=== PATIENT | female | born 1955 | race Caucasian/White ===

== ENCOUNTER 2024-09-17 07:19 | Observation (INO) ==
--- NOTE | 2024-08-15 10:32 | PAT Medication Instructions ---
Medication Instructions Date of Service August 15, 2024 Home Medications acetaminophen 325 mg tablet 325 mg PO QID PRN Pain atorvastatin 20 mg tablet 20 mg PO HS coenzyme Q10 100 mg capsule (Co Q-10) 100 mg PO DAILY duloxetine 60 mg capsule,delayed release 60 mg PO QAM ibuprofen 400 mg tablet 400 mg PO Q8H PRN Pain linaclotide 72 mcg capsule (Linzess) 72 mcg PO QAM losartan 100 mg-hydrochlorothiazide 25 mg tablet 1 tab PO QAM metformin 500 mg tablet 500 mg PO HS metoprolol tartrate 25 mg tablet 25 mg PO QAM omega-3 fatty acids 1,000 mg PO DAILY semaglutide 2 mg/dose (8 mg/3 mL) subcutaneous pen injector (Ozempic) 4 mg subcut WK ASK your surgeon for instructions ibuprofen 400 mg tablet 400 mg PO Q8H PRN Pain STOP taking 2 weeks before surgery (or as soon as possible if surgery is within 2 weeks) coenzyme Q10 100 mg capsule (Co Q-10) 100 mg PO DAILY omega-3 fatty acids 1,000 mg PO DAILY STOP 7 days prior to surgery semaglutide 2 mg/dose (8 mg/3 mL) subcutaneous pen injector (Ozempic) 4 mg subcut WK DO NOT take the morning of surgery linaclotide 72 mcg capsule (Linzess) 72 mcg PO QAM losartan 100 mg-hydrochlorothiazide 25 mg tablet 1 tab PO QAM Take morning of surgery With a small sip of water, OTHERWISE NOTHING TO EAT OR DRINK AFTER MIDNIGHT: acetaminophen 325 mg tablet 325 mg PO QID PRN Pain (if needed) duloxetine 60 mg capsule,delayed release 60 mg PO QAM metoprolol tartrate 25 mg tablet 25 mg PO QAM Take evening before surgery acetaminophen 325 mg tablet 325 mg PO QID PRN Pain (if needed) atorvastatin 20 mg tablet 20 mg PO HS metformin 500 mg tablet 500 mg PO HS Other Notes If you have any questions please call us at [phone] or [phone] or [phone] or [phone]
--- NOTE | 2024-08-20 12:49 | Anesthesiology Consultation ---
Date of Service August 20, 2024 Assessment & Plan (1) Encounter for pre-operative examination: - Check BSG DOS - Infectious disease screening: Per assessment on 08/20/24- No known recent infectious disease contacts or current infectious disease symptoms. - Outpatient joint assessment: Pt currently scheduled for inpatient pathway. If surgeon requests review for outpatient joint pathway, patient is not recommended candidate for outpatient joint program from anesthesia standpoint based on available information. - GLP-1 medication instructions: Patient informed by PAT to stop 7 days prior to surgery- voiced understanding. DOS 09/17. Advised last dose to be 09/05. - Patient acceptable risk for surgery pending surgeon-ordered PCP preop evaluation (TONJA Chong, appt 09/12). Chart Review Chart Review: Patient seen in Pre Admission Testing Teaching & Discussion Pre-Anesthesia Teaching/Discussion Notes: Instructed NPO after midnight before surgery,except medications with 15 cc of water. Medication instructions provided according to the PAT guidelines. History Surgery Operation Date: 09/17/24 09:55 Proposed Procedures p Right Total Shoulder Arthroplasty, Distal Clavicle Excision, Rotator Cuff Repair with Regeneten Biological Implant, Biceps Tenodesis - Barney Edouard MD Height/Weight Height: 5 ft 2 in Weight: 98.6 kg Allergies Allergy/AdvReac Type Severity Reaction Status Date / Time Penicillins Allergy Unknown Unknown Verified 08/20/24 10:30 (childhood reaction) Medications Home Medications Medication Instructions Recorded Confirmed Last Taken acetaminophen 325 mg tablet 325 mg PO QID PRN Pain 08/13/24 08/13/24 Unknown atorvastatin 20 mg tablet 20 mg PO HS 08/13/24 08/13/24 Unknown coenzyme Q10 100 mg capsule (Co 100 mg PO DAILY 08/13/24 08/13/24 Unknown Q-10) duloxetine 60 mg capsule,delayed 60 mg PO QAM 08/13/24 08/13/24 Unknown release ibuprofen 400 mg tablet 400 mg PO Q8H PRN Pain 08/13/24 08/13/24 Unknown linaclotide 72 mcg capsule 72 mcg PO QAM 08/13/24 08/13/24 Unknown (Linzess) losartan 100 1 tab PO QAM 08/13/24 08/13/24 Unknown mg-hydrochlorothiazide 25 mg tablet metformin 500 mg tablet 500 mg PO HS 08/13/24 08/13/24 Unknown metoprolol tartrate 25 mg tablet 25 mg PO QAM 08/13/24 08/13/24 Unknown omega-3 fatty acids 1,000 mg PO DAILY 08/13/24 08/13/24 Unknown semaglutide 2 mg/dose (8 mg/3 mL) 4 mg subcut WK 08/13/24 08/13/24 Unknown subcutaneous pen injector (Ozempic) Past Medical History Medical History Anxiety and depression Chronic constipation Diabetes Dyslipidemia History of COVID-19 (2020) Resolved History of palpitations [facility] cardio evaluation 2021, unremarkable Zio patch findings, f/u PRN recommended HTN (hypertension) Exercise / Class Metabolic Activity II 4-5 Yardwork/Stairs/Walk up hill (one FS: No CP, no SOB) Past Surgical History Surgical History History of carpal tunnel release of both wrists History of esophagogastroduodenoscopy (EGD) History of total left hip arthroplasty (02/2024) [facility] Hx of appendectomy Hx of bilateral cataract extraction Hx of colonoscopy Hx of tonsillectomy Past Anesthesia History No Hx of Anesthesia Complications and No Family Hx of Anesthesia Complications History of PONV No Hx of PONV and No Hx of Motion Sickness Social History Smoking Status: Former smoker Do You Dip or Chew Tobacco: No Smoking End Date: Quit 2006 Hx Alcohol Use: No Hx Substance Use: No substance use type: does not use Review of Systems Patient denies chest pain, shortness of breath, dyspnea on exertion, fever, chills, cough, wheezing, palpitations. Physical Exam Vital Signs BP 106/64 P 63 TEMP 98.4 SP02 97%RA RESP 18 Physical Full cervical extension range of motion. Full TMJ range of motion. TMD > 3.5 finger breaths Mallampati Score II Dentition: missing sides, + crowns Lungs: clear throughout to auscultation Cardiac: regular rate and rhythm, no murmurs noted Spine: normal Carotid arteries: negative bruit Extremities: no LE edema Lab Results Anesthesia Preop Results Results Anesthesia Widget: WBC 6.50 K/ul (4.8-10.8) 08/20/24 Hgb 12.9 g/dl (12.0-16.0) 08/20/24 Hct 37.9 % (37.0-47.0) 08/20/24 Plt 267 K/uL (130-400) 08/20/24 Na 137 mmol/L (136-145) 08/20/24 K 3.9 mmol/L (3.5-5.1) 08/20/24 Cl 100 mmol/L (98-107) 08/20/24 CO2 31 mmol/L (21-32) 08/20/24 BUN 15 mg/dl (6-23) 08/20/24 Creat 0.80 mg/dl (0.6-1.2) 08/20/24 Glucose Level 110 mg/dl (70-99(Fasting)) H 08/20/24 PT 11.3 Seconds (9.0-12.0) 08/20/24 PTT 27 Seconds (21-31) 08/20/24 INR 1.0 (0.9-1.1) 08/20/24 HA1c 5.9 % (4.5-5.6) H 08/20/24 Urine Color Yellow 08/20/24 Urine Appearance Clear (Clear) 08/20/24 Urine pH 7.0 (4.5-7.5) 08/20/24 Urine Specific [place] 1.019 (1.000-1.030) 08/20/24 Urine Protein Negative (Negative) 08/20/24 Urine Glucose (UA) Negative (Negative) 08/20/24 Urine Ketones Trace (Negative) H 08/20/24 Urine Blood Negative (Negative) 08/20/24 Urine Nitrite Negative (Negative) 08/20/24 Urine Bilirubin Negative (Negative) 08/20/24 Urine Urobilinogen Negative (Negative) 08/20/24 Urine Leukocyte Esterase 1+ (Negative) H 08/20/24 Urine WBC (Auto) 0-5 /hpf (0-5) 08/20/24 Urine RBC (Auto) 0-2 /hpf (0-2) 08/20/24 Urine Hyaline Casts (Auto) 0-2 /lpf (0-2) 08/20/24 Urine Epithelial Cells (Auto) 3-5 /hpf (0-2) H 08/20/24 Urine Bacteria (Auto) None Seen (None Seen) 08/20/24 Blood Type O Positive 08/20/24 Antibody Screen NEGATIVE 08/20/24 Testing Electrocardiogram Date: 08/20/24 NSR at 67bpm. Low voltage QRS. Chest X-Ray Date: 08/20/24 FINDINGS: Heart size and pulmonary vasculature are normal. No consolidation or pleural effusion. IMPRESSION: No acute findings.
--- NOTE | 2024-09-15 16:43 | History & Physical Report ---
Date of Service September 15, 2024 Assessment & Plan (1) Osteoarthritis of right shoulder: Plan: Right shoulder pain chronic failed conservative management with advanced glenohumeral osteoarthritis and AC joint osteoarthritis which will require an anatomic total shoulder replacement with distal clavicle excision and rotator cuff repair with Regeneten bio inductive type I collagen implant. Biceps tenodesis will be performed to the pectoralis. Osteoarthritis type: primary Qualified Code(s): M19.011 - Primary osteoarthritis, right shoulder (2) Tendinopathy of right rotator cuff: (3) Biceps tendinopathy of right upper extremity: History of Present Illness Chief Complaint: Chronic right shoulder pain Primary Care Provider: Emir Lindsay MD 69-year-old female with chronic right shoulder pain with osteoarthritis and rotator cuff tendinopathy Patient denies headaches, sweats, fevers, chills, double vision, blurred vision, cough, sore throat, dysphagia, chest pain, sob, wheezing, n/v/d/c, numbness, tingling, fatigue, urinary symptoms, mood disorders. ROS positive for hypertension diabetes sometimes anemic osteoarthritis of the spine and takes Ozempic. Allergies Allergy/AdvReac Type Severity Reaction Status Date / Time Penicillins Allergy Unknown Unknown Verified 08/20/24 10:30 (childhood reaction) Home Medications Medication Instructions Recorded Confirmed Type acetaminophen 325 mg tablet 325 mg PO QID PRN Pain 08/13/24 08/13/24 History atorvastatin 20 mg tablet 20 mg PO HS 08/13/24 08/13/24 History coenzyme Q10 100 mg capsule (Co 100 mg PO DAILY 08/13/24 08/13/24 History Q-10) duloxetine 60 mg capsule,delayed 60 mg PO QAM 08/13/24 08/13/24 History release ibuprofen 400 mg tablet 400 mg PO Q8H PRN Pain 08/13/24 08/13/24 History linaclotide 72 mcg capsule 72 mcg PO QAM 08/13/24 08/13/24 History (Linzess) losartan 100 1 tab PO QAM 08/13/24 08/13/24 History mg-hydrochlorothiazide 25 mg tablet metformin 500 mg tablet 500 mg PO HS 08/13/24 08/13/24 History metoprolol tartrate 25 mg tablet 25 mg PO QAM 08/13/24 08/13/24 History omega-3 fatty acids 1,000 mg PO DAILY 08/13/24 08/13/24 History semaglutide 2 mg/dose (8 mg/3 mL) 4 mg subcut WK 08/13/24 08/13/24 History subcutaneous pen injector (Ozempic) Past Med/Surg History Problem List (Updated 09/15/24 @ 16:42 by Barney Edouard MD) Biceps tendinopathy of right upper extremity Tendinopathy of right rotator cuff Osteoarthritis of right shoulder Encounter for pre-operative examination Medical History History of palpitations [facility] cardio evaluation 2021, unremarkable Zio patch findings, f/u PRN recommended Chronic constipation History of COVID-19 (2020) Resolved Anxiety and depression Diabetes Dyslipidemia HTN (hypertension) Surgical History History of esophagogastroduodenoscopy (EGD) Hx of colonoscopy Hx of bilateral cataract extraction History of carpal tunnel release of both wrists Hx of tonsillectomy Hx of appendectomy History of total left hip arthroplasty (02/2024) [facility] Social History Smoking Status: Former smoker Tobacco Type: Cigarettes Second Hand Exposure: No; Do You Dip or Chew Tobacco: No; Hx Alcohol Use: No Hx Substance Use: No Preferred Language: Croatian Communication Ability: Effective Office Chair Assembler Required: No Beliefs That Will Affect Care: None Current Living Situation: Alone Feels Safe at Home: Yes Assistive Devices: Glasses Review of Systems All systems reviewed & are unremarkable except as noted in HPI & below Physical Exam Constitutional: WD/WN, vitals as above Respiratory: normal respiratory effort; no respiratory distress Cardiovascular: Rate/Rhythm: regular rate and regular rhythm Musculoskeletal: Right shoulder has crepitation with range of motion some abnormal rhythm with positive impingement signs and some limitation of range of motion with 160 degrees forward flexion and abduction and 80 degrees external rotation and 90 degrees internal rotation. Distal circulation sensorimotor exam is normal. Skin: no rashes, warm and dry Neurologic: normal touch/pain/proprioception Psychiatric: A+Ox3, euthymic affect Results & Data Diagnostic Findings X-rays and MRI demonstrate the MRI shows more severe osteoarthritis in the x- rays show but patient does have osteoarthritis of the glenohumeral joint which is [id number] with no articular cartilage remaining in the glenohumeral joint on the MRI. There is advanced AC joint osteoarthritis as well. There is intratendinous tendinopathy of the rotator cuff but no evidence of any high- grade tears of the rotator cuff. There is substantial biceps tendinopathy noted.
[2024-09-17] MEDS ORDERED: BUPIVACAINE 0.5 % 5 MG/1 ML PF 10ML VIAL ONE (07:41)
[2024-09-17] MEDS ORDERED: LIDOCAINE 2% 2 ML VIAL/AMP(20MG/ML) INFIL ONE (07:46)
[2024-09-17] MEDS ORDERED: ONDANSETRON INJ 2 MG/ML 2 ML VIAL ONE (07:46)
[2024-09-17] MEDS ORDERED: PROPOFOL IV EMULSION 10 MG/ML 20 ML VIAL IV ONE (07:46)
[2024-09-17] MEDS ORDERED: DEXAMETHASONE SOD INJ 4 MG/ML VIAL ONE (07:46)
[2024-09-17] MEDS ORDERED: MIDAZOLAM HCL 1 MG/ML 2ML VIAL ONE (07:47)
[2024-09-17] MEDS ORDERED: ROCURONIUM BROMIDE 10 MG/ML 5 ML VIAL IV ONE ×2 (07:47→12:15)
[2024-09-17] MEDS: LR 60ML/HR IV SCH (08:20)
[2024-09-17] MEDS: METOCLOPRAMIDE HCL 10 MG TABLET PO SCH (08:20)
[2024-09-17] MEDS: LR 15ML/HR IV SCH (08:20)
[2024-09-17] MEDS: CeleBREX 200 MG CAP PO SCH (08:21)
[2024-09-17] MEDS: ACETAMINOPHEN 500 MG TAB PO SCH ×2 (08:21→21:45)
[2024-09-17] MEDS: VANCOMYCIN HCL 1,500 MG in SODIUM CHLORIDE 0.9% 500 ML IV SCH ×2 (08:21→21:53)
[2024-09-17] MEDS ORDERED: ATROPINE SULFATE 0.1 MG/ML 10ML SYR IV PRN (09:09)
[2024-09-17] MEDS ORDERED: PROMETHAZINE HCL 6.25 MG in SODIUM CHLORIDE 0.9% 50 ML IV PRN (09:09)
[2024-09-17] MEDS ORDERED: HYDROmorphone INJ 2 MG/ML SYR/VIAL IV PRN (09:09)
--- NOTE | 2024-09-17 10:35 | History & Physical Bridge Note ---
Date of Service September 17, 2024 History & Physical Bridge Note I have examined the patient, reviewed the History & Physical and in the interval since the performance of the History & Physical I have noted the following changes of clinical significance: no changes noted
[2024-09-17] MEDS: TRANEXAMIC ACID 1,000 MG **IV Pre-op IV SCH (10:56)
[2024-09-17] MEDS ORDERED: GLYCOPYRROLATE 0.2 MG/ML VIAL ONE (11:41)
[2024-09-17] MEDS ORDERED: PHENYLEPHRINE 100MCG/ML 5ML SYR ONE (11:45)
[2024-09-17] MEDS ORDERED: PHENYLEPHRINE HCL 10 MG/ML VIAL ONE (11:46)
[2024-09-17] MEDS ORDERED: ESMOLOL HCL INJ 10 MG/ML 10ML VIAL IV ONE (12:09)
[2024-09-17] MEDS ORDERED: SUGAMMADEX SODIUM 200 MG/2 ML VIAL IV ONE (12:48)
[2024-09-17] MEDS: EpINEphrine HCL INJ 1 MG/ML 1ML SYRINGE IR ONE (12:51)
--- NOTE | 2024-09-17 14:32 | Post Operative Brief Note ---
Immediate Post Op Note Date of Surgery September 17, 2024 Pre & Post Diagnosis Operation Date: 09/17/24 09:55 Pre-Op Diagnosis: Osteoarthritis of right shoulder glenohumeral and acromioclavicular and biceps tenosynovitis and impingement syndrome and interstitial rotator cuff tendinopathy. Post-Op Diagnosis: Same including degenerative glenoid labral tear I identified the patient and participated in the time-out.: Yes Procedure Operation Date: 09/17/24 09:55 Actual Procedures p Right Total Shoulder Arthroplasty, Distal Clavicle Excision, Rotator Cuff Repair with Regeneten Biological Implant, Biceps Tenodesis(Right) - Barney Edouard MD Surgeon Barney Edouard MD Director Of Laboratory Operations Ilya VILLANUEVA Estimated Blood Loss 75 Findings Consistent with Post-Op Diagnosis Specimens Bone cuts Drains Hemovac Drain Anesthesia Type General Regional Complications none Disposition Disposition: Recovery Room Overlapping Procedure I was immediately available: during the entire case.
--- NOTE | 2024-09-17 14:54 | Operative Report ---
Post Operative Report Pre & Post Diagnosis Operation Date: 09/17/24 09:55 Pre-Op Diagnosis: Osteoarthritis of right shoulder glenohumeral joint and acromioclavicular joint, subacromial impingement, subacromial bursitis, rotator cuff interstitial tendinopathy partial tearing, biceps tenosynovitis. Post-Op Diagnosis: Same with degenerative glenoid labral tear. I identified the patient and participated in the time-out.: Yes Procedure Operation Date: 09/17/24 09:55 Actual Procedures p Right Anatomic Total Shoulder Arthroplasty, Distal Clavicle Excision, excision acromial facet of acromioclavicular joint spurs, rotator Cuff Repair with Regeneten bio inductive type I collagen implant, Biceps Tenodesis(Right) - Barney Edouard MD Surgeon Barney Edouard MD Project Management Specialist Ilya VILLANUEVA Estimated Blood Loss 75 Findings Consistent with Post-Op Diagnosis Specimens Humeral head and distal clavicle Drains 2 Hemovac Anesthesia Type General Regional Complications none Disposition Disposition: Recovery Room Indications 69-year-old female with right shoulder pain and MRI and x-rays demonstrating glenohumeral osteoarthritis grade 4 [id number] with significant biceps tenosynovitis and subacromial impingement due to hypertrophic acromioclavicular joint with moderate hypertrophic acromioclavicular joint osteoarthritis and supraspinatus and infraspinatus have some interstitial partial tearing and tendinopathy of the rotator cuff. No full-thickness tears. Description of Procedure Patient was taken to the operating room anesthetized under regional block and general anesthetic. Patient was placed in a 40 degree beach chair position with a foam headrest protective eyewear all extremities padded teds and SCDs were placed. A towel roll was placed on the medial border of the scapula of the right upper extremity. The arm was examined and range of motion demonstrated normal range of motion with hypertrophy of the AC joint. An anterior deltopectoral approach was performed. Longitudinal incision was made in deltopectoral interval. Skin incised sharply and subcutaneous flaps elevated. The deltopectoral interval was identified. The cephalic vein demonstrated normal-appearing vein. The cephalic vein was retracted laterally with the deltoid. The upper centimeter of the pectoralis was released for inferior expos ure. Biceps tendon demonstrated marked tenosynovitis. A tenosynovectomy was performed. The biceps was tenodesed to the pectoralis tendon using #2 FiberWire [id number] and whipstitch type sutures. Proximal biceps was resected. Rotator cuff findings demonstrated intact tearing rotator cuff from the external appearance with some moderate bursitis. The bursa was resected.. The circumflex vessels were tied off with silk ties and divided laterally. The subscapularis muscle fibers were split at the level of circumflex vessels and released off the inferior capsule with a Kitner elevator and then a blunt Hohmann retractor was placed protect the axillary nerve. The rotator interval was released down to the level of the glenoid. The subscapularis tendon was taken down with a transtendinous incision leaving a cuff of tissue for repair on the lesser tuberosity. The humeral head findings demonstrated eburnated bone centrally and rimming osteophytes from anterior through the inferior and posterior humeral head. The osteophytes were resected using an artist chisel and rongeur. The inferior capsule was released off the bone subperiosteally using a Andrews elevator. A #1 Vicryl traction suture was placed into the free edge of the subscapularis tendon. A Fukuda retractor was placed into the joint. Capsule was released with Blake scissors down to the glenoid and off of the anterior glenoid to the rotator interval which was released to meet the capsular release creating a 360 degree release of subscapularis tendon. An anterior Bankart retractor was placed. The glenoid and labral findings demonstrated large meniscoid type labrum with chronic fraying and degenerative tearing circumferentially. This was resected as well as the remainder of the biceps tendon attachment superiorly.. An anterior-inferior and posterior inferior capsule release was performed electrocautery on bone and a Andrews elevator. The axillary nerve was protected inferiorly with the blunt Hohmann. Attention was taken back to the humeral head. Humeral head was exposed with extension and external rotation. The oscillating saw was used to make an anatomic neck cut removing the articular surface. All the circumferential remaining osteophytes were trimmed with a rongeur. The humerus was sized for a 1 nucleus and a 46 x 17 mm simplicity Tornier humeral head. The bone was assessed with a thumb press test and there was solid cancellous bone. The guide for the nucleus was placed centrally and then the guidepin was placed. The surface reamer was used followed by the central drill for the nucleus. The trial nucleus was inserted and the cut protector was placed. The humerus was retracted posterior to the glenoid . A Tornier retractor ,Hohmann retractors as well as an anterior Bankart retractor were placed. The glenoid was fully exposed. The Tornier Cortiloc glenoid was used. The small 30 radius size was chosen. The central drill hole was made followed by the reamer for the glenoid followed by widening the central hole for the central post. The guide for the peripheral drill holes was placed and the drill holes were made. The trial reduction performed with stable fixation. The trial removed and the glenoid copiously irrigated with pulsed saline solution. The drill holes were packed with epinephrine-soaked tampons. The [place] G cement was vacuum mixed. The Cortiloc small 30 radius glenoid component was then cemented in position after drying the glenoid after removal of the tampons. Fixation was excellent. All excess cement was cleared. When the cement cured we moved onto removing the cut protector doing a trial reduction with a 46 x 17 millimeter humeral head trial. Stability was assessed and was stable. Soft tissue tension on the subscapularis tendon was satisfactory. The trial components of the humeral head were removed and the 3 drill holes were made in the harder bone in the biceps groove area and transosseous #5 FiberWire sutures were placed. Then the humeral cut surface was reexposed with retractors and after irrigation the size 1 nucleus was impacted leaving it slightly proud until the 46 x 17 simplicity humeral head was placed into the nucleus and then both were impacted into the humerus with a tight press-fit. The humerus was reduced to the glenoid. Betadine soak was performed and attention was taken to the distal clavicle excision. A transverse incision was made over the distal clavicle skin incised sharply subcutaneous flaps were elevated subcutaneous bleeders were cauterized. A transverse incision was made through the periosteum and subperiosteal elevation performed with a [place] elevator and baby Hohmann retractors were placed and then the oscillating saw was used to resect 1 cm distal clavicle. There were superior and inferior spurs on the clavicle and moderately advanced arthritic changes. The acromioclavicular joint facet spurs were then debrided with a rongeur. Irrigation was performed with pulsatile lavage. A #1 Vicryl ripstop suture was placed into the deltoid and then the deltoid trapezius fascia was repaired with [id number] #2 FiberWire sutures with secure repair. Glenohumeral joint was irrigated out with pulsatile lavage saline solution and then the subscapularis tendon was repaired with the [id number] 5 FiberWire sutures that were placed with a Mark-Beck suture technique.. Lateral row fixation was performed with interrupted [id number] #2 FiberWire sutures and rotator interval was closed with #2 FiberWire sutures. Range of motion demonstrated 150 degrees forward flexion 60 degrees external rotation 90 degrees abduction without tension on repair. A large [employer] bio inductive type I collagen implant was placed over the supraspinatus and anterior infraspinatus. It was sutured to the rotator cuff tendons using interrupted 2-0 Vicryl sutures with secure fixation. The pectoralis was repaired with [id number] #2 FiberWire sutures placing sutures back through the biceps tendon to reinforce the tenodesis. 2 Hemovac drains were placed. The deltopectoral interval was repaired with [id number] #1 Vicryl sutures. The subcutaneous tissue was repaired with 2- 0 Vicryl sutures and the skin was closed with holli. Sterile dressings were applied and a sling immobilizer. The patient tolerated the procedure well. Ilya VILLANUEVA acted as court assistant throughout the procedure. He functioned as court assistant assisting in all aspects of the procedure including patient positioning prepping draping, arm positioning, soft tissue retraction,, instrument management, subcutaneous and skin closure and postop care of the patient as well. I attest to the content of the Intraoperative Record and any orders documented therein. Any exceptions are noted below.
--- NOTE | 2024-09-17 15:19 | XRay Report ---
RIGHT SHOULDER 2 VIEWS CLINICAL HISTORY: Postoperative examination. FINDINGS: 2 portable views of the right shoulder are obtained. The skeletal structures are osteopenic . A right shoulder arthroplasty is in near anatomic alignment. No acute fracture is seen. Skin clips, subcutaneous gas, a surgical drain, and soft tissue swelling overlying the right shoulder are expect ed postsurgical changes. Productive degenerative change is noted at the acromioclavicular joint. Atel ectasis is seen at the right lung base. IMPRESSION: Expected postoperative findings status post right shoulder arthroplasty. No acute fractur e is seen. Electronically signed by: Gary Sun M.D. 09/17/2024 3:17 PM
--- NOTE | 2024-09-17 15:30 | Anesthesiology Progress Note ---
Date of Service September 17, 2024 Anesthesia Post Procedure Vital Signs Vital Signs: Temp Pulse Pulse Resp BP Pulse Ox O2 Del Method 09/17/24 15:10 60 18 136/77 97 Nasal Cannula 09/17/24 15:00 70 19 143/79 H 96 Nasal Cannula 09/17/24 14:50 84 16 138/87 91 Room Air 09/17/24 14:42 36.0 C L 83 16 121/82 93 Room Air 09/17/24 08:07 36.7 C 73 20 139/89 97 Room Air O2 Flow Rate 09/17/24 15:10 2 09/17/24 15:00 2 09/17/24 14:50 09/17/24 14:42 09/17/24 08:07 Pain Intensity Right Shoulder: Pain Intensity: 5 Transfer of Care Handoff Completed per policy Notes Mental Status: alert / awake / arousable and participated in evaluation Nausea / Vomiting: adequately controlled Pain: adequately controlled Airway Patency, RR, SpO2: stable & adequate BP & HR: stable & adequate Hydration State: stable & adequate Anesthetic Complications: no major complications apparent and Pt Satisfied with anesthetic care
[2024-09-17] MEDS ORDERED: ONDANSETRON INJ 2 MG/ML 2 ML VIAL IV PRN (16:14)
[2024-09-17] MEDS ORDERED: ALUMINUM/MAGNESIUM SUSP 30 ML UDC PO PRN (16:14)
[2024-09-17] MEDS ORDERED: MAGNESIUM HYDROXIDE SUSP 30 ML UDC PO PRN (16:14)
[2024-09-17] MEDS ORDERED: VANCOMYCIN CONSULT ACTIVE PRN (16:14)
[2024-09-17] MEDS ORDERED: KETOROLAC TROMETHAMINE 15 MG/ML VIAL IV PRN (16:14)
[2024-09-17] MEDS ORDERED: HYDROmorphone INJ 0.5 MG/0.5 ML SYR IV PRN (16:14)
[2024-09-17] MEDS ORDERED: PHARMACY GLYCEMIC MGMT CONSULT PRN (16:14)
[2024-09-17] MEDS ORDERED: NALOXONE HCL 0.4 MG/1 ML VIAL/CARP IV PRN (16:14)
[2024-09-17] MEDS ORDERED: diphenhydrAMINE Capsule 25 MG CAP PO PRN (16:14)
[2024-09-17] MEDS ORDERED: METOCLOPRAMIDE HCL INJ 5 MG/ML 2 ML VIAL IV PRN (16:14)
--- NOTE | 2024-09-17 16:39 | Consultation ---
Date of Consultation September 17, 2024 Assessment & Plan (1) Biceps tendinopathy of right upper extremity: (2) Tendinopathy of right rotator cuff: (3) Osteoarthritis of right shoulder: Osteoarthritis of right shoulder glenohumeral joint and acromioclavicular joint Subacromial impingement, subacromial bursitis Rotator cuff interstitial tendinopathy partial tearing, biceps tenosynovitis. --S/P Right total shoulder arthroplasty, distal clavicle excision, excision acromial facet of acromioclavicular joint spurs, rotator cuff repair with type I collagen implant, biceps tendinosis by Dr. Edouard on 09/17/24. -- Monitor for postop anemia Continue bowel regimen to prevent constipation Pain medications as needed Activity, wound care as per orthopedics Incentive spirometry Check vitamin D levels PT OT as able DM Type II: Last HbA1c 5.9 Hold metformin Utilize insulin per protocol while hospitalized Monitor blood glucose levels Glycemic pharmacist consulted Morbid obesity BMI 39.1 On Ozempic Other chronic conditions Hyperlipidemia--continue atorvastatin Mood disorder--on Cymbalta Hypertension-- blood pressure stable, continue home medications-- GERD: Uses PPI as needed Chronic constipation on Linzess DVT Px: Aspirin 81mg BID per Orth Code Status Full Code History of Present Illness Requesting Physician: Barney Edouard MD Reason for Consultation: Postop medical management Attending Physician: Barney Edouard MD History of Present Illness Patient is a 69-year-old female with history of diabetes mellitus, hyperlipidemia, mood disorder, hypertension, morbid obesity, B12 deficiency, GERD, osteoarthritis, colonic polyps and other medical problems was consulted for postop medical management. Patient underwent right total shoulder arthroplasty, distal clavicle excision, excision acromial facet of acromioclavicular joint spurs, rotator cuff repair with type I collagen implant, biceps tendinosis by Dr. Edouard on 09/17/24. Patient is doing well postoperatively denies any significant right shoulder pain at surgical site. Admits to have right upper extremity numbness but otherwise no other complaints. Denies any chest pain, dyspnea, nausea, vomiting, abdominal pain, dizziness. Allergies Allergy/AdvReac Type Severity Reaction Status Date / Time Penicillins Allergy Unknown Unknown Verified 09/17/24 07:51 (childhood reaction) Home Medications Medication Instructions Recorded Confirmed Type acetaminophen 325 mg tablet 325 mg PO QID PRN Pain 08/13/24 09/17/24 History atorvastatin 20 mg tablet 20 mg PO HS 08/13/24 09/17/24 History coenzyme Q10 100 mg capsule (Co 100 mg PO DAILY 08/13/24 09/17/24 History Q-10) duloxetine 60 mg capsule,delayed 60 mg PO QAM 08/13/24 09/17/24 History release ibuprofen 400 mg tablet 400 mg PO Q8H PRN Pain 08/13/24 09/17/24 History linaclotide 72 mcg capsule 72 mcg PO QAM 08/13/24 09/17/24 History (Linzess) losartan 100 1 tab PO QAM 08/13/24 09/17/24 History mg-hydrochlorothiazide 25 mg tablet metformin 500 mg tablet 500 mg PO HS 08/13/24 09/17/24 History metoprolol tartrate 25 mg tablet 25 mg PO QAM 08/13/24 09/17/24 History omega-3 fatty acids 1,000 mg PO DAILY 08/13/24 09/17/24 History semaglutide 2 mg/dose (8 mg/3 mL) 4 mg subcut WK 08/13/24 09/17/24 History subcutaneous pen injector (Ozempic) acetaminophen 500 mg tablet 1,000 mg (2 x 500 mg) PO Q8H #90 09/17/24 Rx (Tylenol Extra Strength) tabs aspirin 81 mg tablet,delayed 81 mg PO BID #60 tabs 09/17/24 Rx release celecoxib 200 mg capsule (Celebrex) 200 mg PO Q12H #60 caps 09/17/24 Rx oxycodone 5 mg tablet 5 mg PO Q4H PRN pain #30 tabs 09/17/24 Rx sulfamethoxazole 800 1 tab PO BID 14 days #28 tabs 09/17/24 Rx mg-trimethoprim 160 mg tablet (Bactrim DS) Patient History Medical History History of palpitations [facility] cardio evaluation 2021, unremarkable Zio patch findings, f/u PRN recommended Chronic constipation History of COVID-19 (2020) Resolved Anxiety and depression Diabetes Dyslipidemia HTN (hypertension) Surgical History History of esophagogastroduodenoscopy (EGD) Hx of colonoscopy Hx of bilateral cataract extraction History of carpal tunnel release of both wrists Hx of tonsillectomy Hx of appendectomy History of total left hip arthroplasty (02/2024) [facility] Social History Smoking Status: Former smoker Tobacco Type: Cigarettes Smoking End Date: Quit 2006; Second Hand Exposure: No; Do You Dip or Chew Tobacco: No; Tobacco Cessation Education Requested by Patient: No Hx Alcohol Use: No Hx Substance Use: No Preferred Language: Uzbek Communication Ability: Effective Developing Machine Operator Required: No Beliefs That Will Affect Care: None Current Living Situation: Alone Other Information That Helps Us Care for You: No Feels Safe at Home: Yes Safety Concerns: Feels Safe At This Time Assistive Devices: Glasses Review of Systems Review of Systems: All systems reviewed & are unremarkable except as noted in Subjective Physical Exam Physical Exam: Physical Exam: Vitals signs as noted above General Appearance: Morbidly obese, no apparent distress Head: normocephalic, Atraumatic Eyes: normal inspection, EOMI Neck: supple, Trachea midline Respiratory/Chest: Normal breath sounds, CTA, No accessory muscle use Cardiovascular: S1, S2, No murmur Abdomen/GI:Soft, Non tender, Bowel sounds present Extremities/Musculoskeletal:normal inspection, trace edema, right shoulder surgical site in dressing, drain Neurologic/Psych:AAOX3, grossly no focal neurological deficits Skin: normal color, warm Results & Data Vital Signs (Past 12 Hours) Vital Signs Temp Pulse Pulse Resp BP Pulse Ox O2 Del Method 09/17/24 15:55 62 20 133/73 95 Nasal Cannula 09/17/24 15:40 63 16 130/72 95 Nasal Cannula 09/17/24 15:30 36.4 C L 65 17 143/77 H 98 Nasal Cannula 09/17/24 15:20 61 17 139/75 98 Nasal Cannula 09/17/24 15:10 60 18 136/77 97 Nasal Cannula 09/17/24 15:00 70 19 143/79 H 96 Nasal Cannula 09/17/24 14:50 84 16 138/87 91 Room Air 09/17/24 14:42 36.0 C L 83 16 121/82 93 Room Air 09/17/24 08:07 36.7 C 73 20 139/89 97 Room Air O2 Flow Rate 09/17/24 15:55 2 09/17/24 15:40 2 09/17/24 15:30 2 09/17/24 15:20 2 09/17/24 15:10 2 09/17/24 15:00 2 09/17/24 14:50 09/17/24 14:42 09/17/24 08:07 Diagnostic Findings Shoulder x-ray:Expected postoperative findings status post right shoulder arthroplasty. No acute fracture is seen. Medications Administered Home Medications Medication Instructions Recorded Confirmed acetaminophen 325 mg tablet 325 mg PO QID PRN Pain 08/13/24 09/17/24 atorvastatin 20 mg tablet 20 mg PO HS 08/13/24 09/17/24 coenzyme Q10 100 mg capsule (Co 100 mg PO DAILY 08/13/24 09/17/24 Q-10) duloxetine 60 mg capsule,delayed 60 mg PO QAM 08/13/24 09/17/24 release ibuprofen 400 mg tablet 400 mg PO Q8H PRN Pain 08/13/24 09/17/24 linaclotide 72 mcg capsule 72 mcg PO QAM 08/13/24 09/17/24 (Linzess) losartan 100 1 tab PO QAM 08/13/24 09/17/24 mg-hydrochlorothiazide 25 mg tablet metformin 500 mg tablet 500 mg PO HS 08/13/24 09/17/24 metoprolol tartrate 25 mg tablet 25 mg PO QAM 08/13/24 09/17/24 omega-3 fatty acids 1,000 mg PO DAILY 08/13/24 09/17/24 semaglutide 2 mg/dose (8 mg/3 mL) 4 mg subcut WK 08/13/24 09/17/24 subcutaneous pen injector (Ozempic) Previous Rx's Medication Instructions Recorded acetaminophen 500 mg tablet 1,000 mg (2 x 500 mg) PO Q8H #90 09/17/24 (Tylenol Extra Strength) tabs aspirin 81 mg tablet,delayed 81 mg PO BID #60 tabs 09/17/24 release celecoxib 200 mg capsule (Celebrex) 200 mg PO Q12H #60 caps 09/17/24 oxycodone 5 mg tablet 5 mg PO Q4H PRN pain #30 tabs 09/17/24 sulfamethoxazole 800 1 tab PO BID 14 days #28 tabs 09/17/24 mg-trimethoprim 160 mg tablet (Bactrim DS) (3) Osteoarthritis of right shoulder Osteoarthritis type: primary Qualified Code(s): M19.011 - Primary osteoarthritis, right shoulder
[2024-09-17] MEDS ORDERED: DEXTROSE 50% 50 ML SYRINGE IV PRN (16:45)
[2024-09-17] MEDS ORDERED: GLUCOSE 10 TAB/TUBE PO PRN (16:45)
[2024-09-17] MEDS ORDERED: CARBOHYDRATES FOR HYPOGLYCEMIA PO PRN (16:45)
[2024-09-17] MEDS ORDERED: GLUCOSE 40% GEL 15 GM TUBE PO PRN (16:45)
[2024-09-17] MEDS ORDERED: GLUCAGON FOR INJ 1 MG VIAL SQ PRN (16:45)
[2024-09-17] MEDS: BUPIVACAINE LIPOSOME 1.3% 133 MG/10 ML VIAL ONE (17:03)
[2024-09-17 17:12] VITALS: RESP 18
[2024-09-17] MEDS: SODIUM CHLORIDE 0.9% 1,000 ML IV SCH (17:16)
[2024-09-17] MEDS: INSULIN ASPART PER UNIT CHARGE SC SCH (17:17)
[2024-09-17] MEDS: COUGH DROP (SUGAR FREE) LOZ 24 LOZ/1 BOX BUCCAL STA (21:38)
[2024-09-17] MEDS: TRANEXAMIC ACID / 0.7% NACL 1,000 MG/100 ML BAG IV SCH (21:41)
[2024-09-17] MEDS: ASPIRIN 81 MG ECTAB PO SCH (21:43)
[2024-09-17] MEDS: DOCUSATE SODIUM 100 MG CAP PO SCH (21:44)
[2024-09-17] MEDS: ATORVASTATIN 20 MG TAB PO SCH (21:44)
[2024-09-17] MEDS: SENNA 8.6 MG TAB PO SCH (21:45)
[2024-09-18 07:20] LABS: Hematocrit (blood only) 34.1 % (37.0-47.0); Hemoglobin 11.3 g/dl (12.0-16.0); Immature Granulocytes # (auto) 0.05 K/uL (0.01-0.20); Immature Granulocytes % (auto) 0.4 %; Mean Corpuscular Hemoglobin 31.0 pg (25.0-34.0); Mean Corpuscular Volume 93.7 fL (80.0-100.0); Platelet Count 230 K/uL (130-400); RDW Standard Deviation 44.9 fL (36.4-46.3); Red Blood Count 3.64 M/uL (4.20-5.40); White Blood Count 12.04 K/ul (4.8-10.8)
[2024-09-18 07:36] VITALS: BP 112/72; TEMP 97.9; O2SAT 96
[2024-09-18 07:40] LABS: Anion Gap 8.0 (3-11); Blood Urea Nitrogen 12.0 mg/dl (6-23); Calcium 8.4 mg/dl (8.6-10.3); Carbon Dioxide 25.0 mmol/L (21-32); Chloride 106.0 mmol/L (98-107); Creatinine Clr Calc Pharmacy 79.0 ml/min; Glucose 105.0 mg/dl (70-99(Fasting)); Potassium 3.7 mmol/L (3.5-5.1); Sodium 139.0 mmol/L (136-145)
[2024-09-18] MEDS: dexAMETHasone 10 MG in SYRINGE 0 ML IV SCH (08:04)
[2024-09-18] MEDS: LOSARTAN/HCTZ 50/12.5MG TAB PO SCH (08:21)
[2024-09-18] MEDS: OMEGA-3 (PURIFIED FISH OIL) 1 GM CAP PO SCH (08:21)
--- NOTE | 2024-09-18 08:21 | Orthopedic Progress Note ---
Date of Service September 18, 2024 Assessment & Plan (1) Osteoarthritis of right shoulder: Plan: Postop day 1 anatomic total shoulder replacement repair with Regeneten implant biceps tenodesis distal clavicle excision. Patient doing well. Patient can be discharged home today and set up outpatient PT. Right shoulder pain chronic failed conservative management with advanced glenohumeral osteoarthritis and AC joint osteoarthritis which will require an anatomic total shoulder replacement with distal clavicle excision and rotator cuff repair with Regeneten bio inductive type I collagen implant. Biceps tenodesis will be performed to the pectoralis. (2) Tendinopathy of right rotator cuff: (3) Biceps tendinopathy of right upper extremity: Admission and Anticipated Discharge Date Admission Date: September 17, 2024 Subjective No complaints Review of Systems Review of Systems: Noncontributory Physical Exam Musculoskeletal: Distal motor exam intact circulation intact. Dressing dry and intact. Comfortable in sling. Results & Data Vital Signs (Past 12 Hours) Vital Signs Temp Pulse Resp BP Pulse Ox O2 Del Method 09/18/24 07:35 36.6 C 64 18 112/72 96 Room Air 09/18/24 03:59 36.8 C 60 18 120/73 93 Room Air 09/17/24 22:20 36.7 C 61 18 115/68 95 Room Air Diagnostic Findings Well aligned stemless total shoulder replacement (1) Osteoarthritis of right shoulder Osteoarthritis type: primary Qualified Code(s): M19.011 - Primary osteoarthritis, right shoulder
[2024-09-18] MEDS: METOPROLOL TARTRATE 25 MG TAB PO SCH (08:22)
[2024-09-18] MEDS: MULTIVITAMIN TAB PO SCH (08:22)
[2024-09-18] MEDS ORDERED: NON-FORMULARY MEDICATION (Coenzyme Q10 [Co Q-10] 100 mg Capsule) PO SCH (09:00)
[2024-09-18 10:29] VITALS: PULSE 62
--- NOTE | 2024-09-18 11:53 | Hospitalist Progress Note ---
Date of Service September 18, 2024 Assessment & Plan (1) Biceps tendinopathy of right upper extremity: (2) Tendinopathy of right rotator cuff: (3) Osteoarthritis of right shoulder: Plan: Osteoarthritis of right shoulder glenohumeral joint and acromioclavicular joint Subacromial impingement, subacromial bursitis Rotator cuff interstitial tendinopathy partial tearing, biceps tenosynovitis. --S/P Right total shoulder arthroplasty, distal clavicle excision, excision acromial facet of acromioclavicular joint spurs, rotator cuff repair with type I collagen implant, biceps tendinosis by Dr. Edouard on 09/17/24. -- Monitor for postop anemia Continue bowel regimen to prevent constipation Pain medications as needed Activity, wound care as per orthopedics Incentive spirometry Nl vitamin D levels PT OT as able DM Type II: Last HbA1c 5.9 Hold metformin Utilize insulin per protocol while hospitalized Monitor blood glucose levels Glycemic pharmacist consulted Morbid obesity BMI 39.1 On Ozempic Other chronic conditions Hyperlipidemia--continue atorvastatin Mood disorder--on Cymbalta Hypertension-- blood pressure stable, continue home medications-- GERD: Uses PPI as needed Chronic constipation on Linzess DVT Px: Aspirin 81mg BID per Orth Code Status Full Code Admission and Anticipated Discharge Date Admission Date: September 17, 2024 Subjective Patient was seen and examined at bedside. Patient was sitting up in bed, on room air, NAD, resting comfortably. Patient reports operative site pain under control, reports moving gas and tolerating diet well, denies bowel movement after the surgery. Patient offers no new complaints. Physical Exam Physical Exam: General Appearance: Morbidly obese, no apparent distress Head: normocephalic, Atraumatic Eyes: normal inspection, EOMI Neck: supple, Trachea midline Respiratory/Chest: Normal breath sounds, CTA, No accessory muscle use Cardiovascular: S1, S2, No murmur Abdomen/GI:Soft, Non tender, Bowel sounds present Extremities/Musculoskeletal:normal inspection, trace edema, right shoulder surgical site in dressing, drain Neurologic/Psych:AAOX3, grossly no focal neurological deficits Skin: normal color, warm Results & Data Results & Data Vital Signs (Past 12 Hours) Vital Signs Temp Pulse Pulse Resp BP Pulse Ox O2 Del Method 09/18/24 10:28 36.6 C 62 64 18 112/72 96 09/18/24 07:35 36.6 C 64 18 112/72 96 Room Air 09/18/24 03:59 36.8 C 60 18 120/73 93 Room Air (3) Osteoarthritis of right shoulder Osteoarthritis type: primary Qualified Code(s): M19.011 - Primary osteoarthritis, right shoulder
== END 2024-09-18 11:25 | disposition home health service (06) ==
LOC: 3E 07:19 → ASU 07:19